=== PATIENT | male | born 1950 | race Caucasian/White ===

== ENCOUNTER 2021-08-27 22:42 | Observation (INO) ==
[2021-08-27 23:53] LABS: Basophils % 0.5 %; Eosinophils # 0.1 K/mcL (0.0-0.6); Eosinophils % 0.7 %; Hematocrit 43.5 % (37.5-50.1); Hemoglobin 14.5 g/dL (12.9-16.9); Immature Granulocytes % 0.4 % (0-4); Lymphocytes # 2.8 K/mcL (0.6-4.6); Mean Corpuscular HGB Conc 33.3 g/dL (31.6-35.5); Mean Corpuscular Hemoglobin 31.6 pg (28.0-33.3); Mean Corpuscular Volume 94.8 fL (83.0-100.0); Mean Platelet Volume 9.1 fL (9.4-12.4); Monocytes # 0.7 K/mcL (0.0-1.3); Monocytes % 8.2 %; Neutrophils # 4.8 K/mcL (1.6-8.9); Platelet Count 228 K/mcL (140-400); Red Blood Count 4.59 M/mcL (4.19-5.50); Red Cell Distribution Width 12.6 % (11.5-14.5); Segmented Neutrophils % 57.2 %; White Blood Count 8.5 K/mcL (4.3-11.1)
[2021-08-28 00:04] LABS: BUN/Creatinine Ratio 16 (6-26); Blood Urea Nitrogen 14 mg/dL (8-23); Calcium 9.7 mg/dL (8.6-10.3); Carbon Dioxide 25 mEq/L (23-29); Chloride 102 mEq/L (98-107); Glucose 94 mg/dL (70-105); Osmolality,Calculated 284 (280-300); Potassium 3.7 mEq/L (3.5-5.1); Sodium 137 mEq/L (136-145); Troponin I < 0.03 ng/mL (< 0.04); eGFR For African Americans > 60 (> 60); eGFR For Non-African Americans > 60 (> 60)
[2021-08-28] MEDS ORDERED: *HR* HYDROcodone/Acet 5/325 mg TABLET PO PRN (01:37)
[2021-08-28] MEDS ORDERED: Melatonin 3 MG TABLET PO PRN (01:37)
[2021-08-28] MEDS ORDERED: Acetaminophen 325 MG TABLET PO PRN (01:37)
[2021-08-28] MEDS ORDERED: *HR* Promethazine 25 MG/ML VIAL IM PRN (01:37)
[2021-08-28] MEDS ORDERED: Naloxone 0.4 MG/ML INJ IVP PRN (01:37)
[2021-08-28] MEDS ORDERED: Perflutren Lipid Microsphere 1.3 ML in 0.9 % Sodium Chloride 8.7 ML IVP PRN (03:01)
[2021-08-28] MEDS ORDERED: Dextrose Gel 15 GM/37.5 ML TUBE PO PRN ×2 (03:02)
[2021-08-28] MEDS ORDERED: D5% in Water 1,000 ML IVC PRN (03:02)
[2021-08-28] MEDS ORDERED: *HR* Dextrose 50 % in Water (Syg) 50 ML SYRINGE IVP PRN (03:02)
[2021-08-28] MEDS ORDERED: *HR* LORazepam 0.5 MG TABLET PO PRN (03:06)
[2021-08-28] MEDS ORDERED: Morphine Sulfate 2 MG/ML SYRINGE IVP ONE (03:14)
[2021-08-28] MEDS ORDERED: *HR* LORazepam 2 MG/ML VIAL IVP ONE (03:56)
[2021-08-28] MEDS: *HR* Enoxaparin 40 MG/0.4 ML SYRINGE SQ SCH (05:31)
[2021-08-28 05:37] LABS: Basophils % 0.5 %; Eosinophils # 0.1 K/mcL (0.0-0.6); Eosinophils % 0.7 %; Hematocrit 40.3 % (37.5-50.1); Immature Granulocytes % 0.1 % (0-4); Lymphocytes # 2.5 K/mcL (0.6-4.6); Lymphocytes % 33.2 %; Mean Corpuscular HGB Conc 34.7 g/dL (31.6-35.5); Mean Corpuscular Hemoglobin 32.9 pg (28.0-33.3); Mean Corpuscular Volume 94.8 fL (83.0-100.0); Monocytes # 0.7 K/mcL (0.0-1.3); Monocytes % 8.7 %; Neutrophils # 4.3 K/mcL (1.6-8.9); Platelet Count 207 K/mcL (140-400); Red Blood Count 4.25 M/mcL (4.19-5.50); Red Cell Distribution Width 12.6 % (11.5-14.5); Segmented Neutrophils % 56.8 %; White Blood Count 7.5 K/mcL (4.3-11.1)
[2021-08-28 05:45] LABS: INR 1.2
[2021-08-28 06:10] LABS: BUN/Creatinine Ratio 16 (6-26); Blood Urea Nitrogen 13 mg/dL (8-23); Calcium 9.4 mg/dL (8.6-10.3); Carbon Dioxide 26 mEq/L (23-29); Chloride 103 mEq/L (98-107); Chol/HDL Ratio 2.7 (0-4.9); Cholesterol 96 mg/dL (< 200); Glucose 131 mg/dL (70-105); HDL Cholesterol 36 mg/dL (40-59); LDL Cholesterol,Calculated 42 mg/dL (< 100); Osmolality,Calculated 288 (280-300); Phosphorous 3.7 mg/dL (2.7-4.5); Potassium 3.5 mEq/L (3.5-5.1); Sodium 138 mEq/L (136-145); Triglycerides 92 mg/dL (< 150); eGFR For African Americans > 60 (> 60); eGFR For Non-African Americans > 60 (> 60)
[2021-08-28] MEDS ORDERED: Regadenoson 0.4 MG/5 ML SYRINGE IVP ONE (07:25)
[2021-08-28] MEDS ORDERED: NIFEdipine XL (24 HR) 60 MG TAB.ER.24 PO SCH (09:00)
[2021-08-28 09:11] LABS: Estimated Average Glucose 157 mg/dl; Hemoglobin A1C 7.1 %
[2021-08-28] MEDS: Gabapentin 300 MG CAPSULE PO SCH ×3 (09:46→20:45)
[2021-08-28] MEDS: FLUoxetine 20 MG CAPSULE PO SCH ×2 (09:46→10:44)
[2021-08-28] MEDS: Aspirin 81 MG TAB.CHEW PO SCH (09:47)
[2021-08-28] MEDS: hydroCHLOROthiazide 25 MG TABLET PO SCH (09:47)
[2021-08-28] MEDS: amLODIPine 5 MG TABLET PO SCH (09:51)
[2021-08-28] MEDS: carvediloL 6.25 MG TABLET PO SCH ×2 (09:51→16:37)
[2021-08-28] MEDS: Isosorbide MONOnitrate (24 HR) 30 MG TAB.ER.24H PO SCH (10:43)
[2021-08-28] MEDS ORDERED: Melatonin 3 MG TABLET PO SCH (21:00)
[2021-08-29 03:37] VITALS: O2SAT 94
[2021-08-29] MEDS: *HR* Enoxaparin 40 MG/0.4 ML SYRINGE SQ SCH (06:01)
[2021-08-29 07:27] VITALS: BP 124/64; PULSE 64; TEMP 98
[2021-08-29] MEDS: Aspirin 81 MG TAB.CHEW PO SCH (09:17)
[2021-08-29] MEDS: FLUoxetine 20 MG CAPSULE PO SCH ×2 (09:18→11:28)
[2021-08-29] MEDS: carvediloL 6.25 MG TABLET PO SCH (09:18)
[2021-08-29] MEDS: Isosorbide MONOnitrate (24 HR) 30 MG TAB.ER.24H PO SCH (09:18)
[2021-08-29] MEDS: amLODIPine 5 MG TABLET PO SCH (09:18)
[2021-08-29] MEDS: hydroCHLOROthiazide 25 MG TABLET PO SCH (09:18)
[2021-08-29] MEDS: Gabapentin 300 MG CAPSULE PO SCH ×2 (09:18→14:25)
[2021-08-29 14:15] LABS: Influenza A PCR Negative (Negative); Influenza B PCR Negative (Negative); Resp. Syncytial Virus PCR Negative (Negative)
[2021-08-29 14:35] LABS: SARS-CoV-2 by PCR (In House) Negative (Negative)
== END 2021-08-29 15:45 | disposition other institution (70) ==
LOC: EMEROOARM 22:42 → 3BNU 22:42 → SUATTDRO 08-28 01:38 → 3BNU 08-28 02:30
PROVIDERS: ADMIT Internal Medicine; ATTEND Internal Medicine